=== PATIENT | male | born 1975 | race African-American/Black ===

== ENCOUNTER 2022-12-08 01:38 | Emergency (ER) | payer SELFPAY ==
[~2022-12-08] VITALS: Ht 175.3 cm; Wt 112.0 kg
[2022-12-08 01:40] VITALS: O2SAT 97
[2022-12-08] MEDS ORDERED: ACETAMINOPHEN 325MG TABLET PO ONE (01:45)
[2022-12-08] MEDS ORDERED: LIDOCAINE 5% PATCH TOP ONE (01:45)
[2022-12-08 02:22] VITALS: BP 180/112
[2022-12-08] MEDS ORDERED: ACET-2708 MT (03:41)
[2022-12-08 04:06] VITALS: PULSE 98; RESP 16; TEMP 98.5
== END 2022-12-08 04:08 | disposition home or self-care (01) ==
LOC: ER 01:38
DX: S46.912A Strain of unspecified muscle, fascia and tendon at shoulder and upper arm level, left arm, initial encounter (principal); I10 Essential (primary) hypertension; X99.1XXA Assault by knife, initial encounter; Y93.89 Activity, other specified; Y92.89 Other specified places as the place of occurrence of the external cause; Y99.8 Other external cause status
CPT/HCPCS: 73030; 99283